=== PATIENT | male | born 1990 | race Caucasian/White ===

== ENCOUNTER 2023-03-27 16:00 | Emergency (ER) | payer OTHER, SELFPAY ==
[2023-03-27 16:05] VITALS: PULSE 67
[2023-03-27 16:09] VITALS: BP 122/84; PULSE 88; RESP 16; TEMP 37.3; O2SAT 97; BMI 22.4
--- NOTE | 2023-03-27 16:18 | ED.UPPEXIN1 ---
HPI - Extremity Injury (Upper) General Chief Complaint: Extremity Injury, Upper Stated Complaint: BWC LACERATION Time Seen by Provider: 03/27/23 16:03 Source: patient Mode of arrival: walk-in History of Present Illness HPI narrative: patient is a 32-year-old male who presents to the emergency department for the evaluation of a laceration to the left middle finger that occurred at work just prior to arrival. He states he bumped his hand against a piece of steel and noticed bleeding. He has no significant pain. Tetanus is up-to-date. Bleeding is well-controlled. He is right-hand dominant. No other associated injuries. Related Data Allergies Allergy/AdvReac Type Severity Reaction Status Date / Time menthol Allergy Severe Verified 03/27/23 16:14 Review of Systems ROS Constitutional Denies: fever or chills Ears, nose, mouth, and throat Denies: throat pain or neck pain Cardiovascular Denies: chest pain Respiratory Denies: shortness of breath or cough Gastrointestinal Denies: nausea or vomiting Musculoskeletal Denies: back pain or neck pain Integumentary/Breast Denies: rash Hematologic/Lymphatic Denies: easy bruising Allergic/Immunologic Denies: hives Exam Narrative Exam Narrative: Gen.: Awake, alert, in no distress Head: Normocephalic, atraumatic ENT: Moist mucous membranes Respiratory: No respiratory distress Extremities: Moves extremities equally, 2 cm laceration on the dorsum of the left middle finger just distal to the 3rd MCP joint. There is no tendon visualization, no evidence of tendon laceration. Patient has normal flexion and extension at the MCP joint, PIP and DIP joints. No evidence of extensor tendon deficit. No active bleeding Psych: Normal mood and affect Neuro: No focal neuro deficit Skin: Warm, dry Constitutional Vital Signs, click to edit/add: Last Vital Signs Temp 99.2 F 03/27/23 16:09 Pulse 88 03/27/23 16:09 Resp 16 03/27/23 16:09 BP 122/84 03/27/23 16:09 Pulse Ox 97 03/27/23 16:09 O2 Del Method Room Air 03/27/23 16:09 Course Vital Signs Vital signs: Vital Signs Temperature 99.2 F 03/27/23 16:09 Pulse Rate 88 03/27/23 16:09 Respiratory Rate 16 03/27/23 16:09 Blood Pressure 122/84 03/27/23 16:09 Pulse Oximetry 97 03/27/23 16:09 Oxygen Delivery Method Room Air 03/27/23 16:09 Temperature 99.2 F 03/27/23 16:09 Pulse Rate 88 03/27/23 16:09 Respiratory Rate 16 03/27/23 16:09 Blood Pressure 122/84 03/27/23 16:09 Pulse Oximetry 97 03/27/23 16:09 Oxygen Delivery Method Room Air 03/27/23 16:09 MDM - Extremity Injury (Upper) MDM Narrative Medical decision making narrative: laceration was repaired without difficulty. Please see procedure note for details. Follow-up with occupational health in 8-10 days for suture removal and return to the emergency department if symptoms change or worsen. Regular wound care encouraged. finger splint was applied with dressing and [place] wrap, patient is neurovascularly intact at discharge, he was encouraged to use the splint for at least 3-4 days and keep the sutures covered until they are removed by occupational health. Laceration repair: Done under sterile conditions. The use of Shur-Clens prep the area. Local injection with lidocaine 1% was used, approximately 4 cc. The wound was irrigated copiously with normal saline. The wound was explored there was no evidence of foreign material. The laceration was approximated with 4-0 nylon. 3 simple interrupted sutures were placed. Patient tolerated the procedure well. The patient was neurovascularly intact post. the patient had bacitracin applied to the laceration and a dry sterile dressing was place. The patient will need to follow-up in the next 8-10 days for removal Medical Records Attestation: I reviewed the patient's medical records. Discharge Plan Discharge Chief Complaint: Extremity Injury, Upper Clinical Impression: Laceration of left middle finger Patient Disposition: Home, Self-Care Time of Disposition Decision: 16:49 Condition: Good Mode of Transportation: Private Vehicle Instructions: Finger Laceration (ED) Additional Instructions: Sutures removed in 8-10 days with occupational health; use finger splint at least 3-4 days and keep sutures covered until removed Stand Alone Forms: Portal Instructions Referrals: [facility] [Outside[facility] - 1 week Discharge Date/Time: 03/27/23 17:16
[2023-03-27] MEDS: BACITRACIN 0.9 GM PACKET 1 PACKET TOPICAL (16:52)
[2023-03-27] MEDS: ONDANSETRON 4 MG RAPDIS TABLET SL (16:52)
== END 2023-03-27 17:16 | disposition home or self-care (01) ==
PROVIDERS: Emergency Provider Emergency Medicine
DX: S61.213A Laceration without foreign body of left middle finger without damage to nail, initial encounter (principal); W26.8XXA Contact with other sharp object(s), not elsewhere classified, initial encounter
CPT/HCPCS: 12001; 99284